=== PATIENT | male | born 1980 | race Caucasian/White ===

== ENCOUNTER 2019-02-10 13:57 | Day surgery (SDC) | payer OTHER ==
[~2019-02-10] VITALS: Ht 185.4 cm; Wt 102.6 kg
[2019-02-10 14:17] VITALS: BP 154/77; PULSE 70; TEMP 98
[2019-02-10] MEDS ORDERED: PREDNISONE 5MG5 MG PO (14:23)
--- NOTE | 2019-02-10 14:24 | NUR ---
TO RM AT 1400- CALL LIGHT IN REACH
[2019-02-10 15:00] VITALS: BP 129/76; PULSE 67; TEMP 98
--- NOTE | 2019-02-10 15:00 | NUR ---
TO [facility] PER CART FROM ENDOSCOPY. AMBULATED TO WITH ASSIST. ALERT ORIENTED X 3, TALKING TO STAFF. RECEIVED WATER, PUDDING AND OJ. NOT HERE AT THIS TIME.
[2019-02-10 15:15] VITALS: BP 126/80; PULSE 66
--- NOTE | 2019-02-10 15:15 | NUR ---
ATE 100% AND TOLERATED WELL.
[2019-02-10 15:30] VITALS: BP 132/76; PULSE 78
--- NOTE | 2019-02-10 15:30 | NUR ---
DR DUVALL INTO TALK WITH PATIENT DR DUVALL VERBALLY TOLD PATIENT NOT TO TAKE ANY MEDS AND TO FOLLOW UP IN OFFICE IN 4 WEEKS.
--- NOTE | 2019-02-10 15:47 | NUR ---
RECEIVED DISCHARGE INSTRUCTIONS AND VERBALIZED UNDERSTANDING. PATIENT VERBALIZED BEING UPSET ABOUT NOT FINDING "ANYTHING" AND HE HAS TO PAY OUT OF HIS POCKET. DISCONTINUED IV AND INT- CATHETER INTACT.
--- NOTE | 2019-02-10 15:55 | NUR ---
DISCHARGED PER WC BY NURSING STAFF TO PRIVATE CARE IN CARE OF SAMMIE. I DID EXPLAIN TO OVER THE PHONE TO CALL DR DUVALL OFFICE WITH QUESTIONS OR CONCERNS.
== END 2019-02-10 16:00 | disposition home or self-care (01) ==
LOC: SDCO 13:57
DX: K92.1 Melena (principal); K52.3 Indeterminate colitis; K64.1 Second degree hemorrhoids; R19.7 Diarrhea, unspecified; E66.9 Obesity, unspecified; Z79.51 Long term (current) use of inhaled steroids; Z79.01 Long term (current) use of anticoagulants; Z80.0 Family history of malignant neoplasm of digestive organs; Z87.891 Personal history of nicotine dependence
CPT/HCPCS: J2250; J2704; J3010; J7030